=== PATIENT | male | born 1950 | race Caucasian/White ===

== ENCOUNTER → 2016-09-07 | Outpatient (CLI) | payer BC ==
[2016-09-07 10:26] LABS: BASOPHILS # (AUTO) 0.07 10*3/UL; BASOPHILS % (AUTO) 0.7 % (0-1); EOSINOPHILS # (AUTO) 0.75 10*3/UL; EOSINOPHILS % (AUTO) 7.4 % (0-8); HEMATOCRIT 41.5 % (42.0-52.0); HEMOGLOBIN 14.7 g/dL (14.0-18.0); LYMPHOCYTES # (AUTO) 3.78 10*3/uL; MEAN CORPUSCULAR HEMOGLOBIN 28.7 PG (27-31); MEAN CORPUSCULAR HGB CONC 35.4 g/dL (33-37); MEAN CORPUSCULAR VOLUME 80.9 FL (80-90); MONOCYTES # (AUTO) 0.67 10*3/UL (0.3-0.8); MONOCYTES % (AUTO) 6.6 % (5-15); NEUTROPHILS # (AUTO) 4.85 10*3/UL; NEUTROPHILS % (AUTO) 47.4 % (50-80); RED BLOOD COUNT 5.13 10^6/uL (4.70-6.10)
[2016-09-07 10:31] LABS: BLOOD UREA NITROGEN 19 mg/dL (7-22); BUN/CREATININE RATIO 21.11 (6-20); CALCIUM 9.7 mg/dL (8.7-10.7); CHOL/HDL RATIO 5.48 RATIO (0-4.0); EST GLOMERULAR FILTRATION > 60 (>60 ml/min/1.73m(2)); HDL CHOLESTEROL 29 mg/dL (40-150); SERUM ALBUMIN 4.6 g/dL (3.5-4.8); SERUM CHOLESTEROL 159 mg/dL (120-200)
[2016-09-07 10:48] LABS: PLATELET MORPHOLOGY COMMENT NORMAL MORPHOLOGY (NORM); RBC MORPHOLOGY COMMENT NORMAL MORPHOLOGY (NORM); WBC MORPHOLOGY COMMENT NORMAL MORPHOLOGY (NORM)
== END ==
LOC: MOB LAB 08:24
DX: G35 Multiple sclerosis (principal); E79.0 Hyperuricemia without signs of inflammatory arthritis and tophaceous disease; F32.9 Major depressive disorder, single episode, unspecified; E55.9 Vitamin D deficiency, unspecified; K21.9 Gastro-esophageal reflux disease without esophagitis; N40.0 Benign prostatic hyperplasia without lower urinary tract symptoms; Z13.6 Encounter for screening for cardiovascular disorders; Z12.5 Encounter for screening for malignant neoplasm of prostate
CPT/HCPCS: 36415; 80053; 80061; 82306; 84443; 84550; 85025; G0103

== ENCOUNTER 2017-01-27 11:41 | Emergency (ER) | payer BC ==
[2017-01-27] MEDS ORDERED: ONDANSETRON 4 MG/2 ML VIAL IVP ONE (11:48)
[2017-01-27] MEDS ORDERED: Sodium Chloride 0.9% 1,000 ML PRIMARY IV ONE (11:48)
--- NOTE | 2017-01-27 11:53 | PDOC ---
Gen Adult / Medical Screen HPI - General Chief Complaint: General Medical Stated Complaint: URINARY RETENTION Date Seen by Provider: 01/27/17 Time Seen by Provider: 11:49 Source: POSITIVE: Patient Exam Limitations: POSITIVE: No limitations Nurse's Notes Reviewed & Considered: Yes - Indicators Temperature Between 95 and 101 Degrees: Yes Respirations Between 12 and 20: Yes Blood Pressure Between 100-165 (sys) and 60-100 (harris): Yes Pulse Range Between 60-105 (100 for age > 60 years): Yes Severe Pain (Greater than 5/10 Reported): No Chest or Abdominal Pain: No Inability to Walk: No Pt Reports Active High Risk Cond. (TB/Hepatitis/HIV/Chemo): No Abnormal Mental Status: No - History of Present Illness Initial Comments: This is a very pleasant 66-year-old patient complaining of urinary retention. Patient has 24 hours of being unable to void urine. He has had history of similar episodes in the past but this has lasted longer than any other. He does have multiple sclerosis and has recently changed his diet to a vegan diet in order to reduce his uric acid load. Patient denies any headache, no chest pain, he does have some vague sense of shortness of breath. He denies any nausea vomiting or diarrhea, no fever or sweats but does have chills. He does have abdominal pain in the suprapubic region from urinary retention. No rashes , no myalgias or arthralgias. Body Location Affected: REPORTS: Abdomen Timing: REPORTS: Gradual Duration: >24 hours Similar Symptoms Previously: Yes Recent Care Received: REPORTS: Denies Any Prior Injuries Related to Current Complaint?: No - Patient Home Medications Home Medications: Home Medications Sertraline HCl 1 tab PO DAILY #30 tab 05/12/15 Dalfampridine [Ampyra] 1 tab PO Q12H #180 tab 07/30/15 Cholecalciferol (Vitamin D3) [Vitamin D3] 1 tab PO QD #30 tab 08/05/15 Aspirin [Aspirin Ec] 1 tab PO QD #30 tab 08/26/16 Multivits-Minerals/FA/Lycopene [Men's Daily Formula Capsule] 1 cap PO QD #30 cap 08/26/16 Tamsulosin HCl 1 cap PO QD #30 cap 10/18/16 - Patient Allergies Allergies/Adverse Reactions: Allergies Allergy/AdvReac Type Severity Reaction Status Date / Time No Known Drug Allergies Allergy Unverified 01/27/17 11:02 ROS - Limitations ROS Limitations: No Limitations Constitution: REPORTS: Chills Cardiovascular: REPORTS: Denies Cardiac Symptoms Respiratory: REPORTS: Shortness Of Breath Neurological: REPORTS: Other (Multiple sclerosis) Gastrointestinal: REPORTS: Denies GI Symptoms Endocrine: REPORTS: Denies Symptoms Musculoskeletal: REPORTS: Denies MS Symptoms Genitourinary: REPORTS: Denies Symptoms Eyes: REPORTS: Denies Symptoms ENT: REPORTS: Denies Symptoms Skin: REPORTS: Denies Skin Symptoms Lympathic: REPORTS: Denies Lympathic Symptoms Immunologic: POSITIVE: Denies Symptoms Psychiatric: POSITIVE: Denies Psych Symptoms Gen Adult/Medical Screen Exam - General Appearance General Appearance: POSITIVE: Alert, Cooperative, No Evidence of Trauma, Mild Distress - HEENT HEENT: POSITIVE: Head Inspection Nml, Eyes Inspection Nml, Ears Inspection Nml, Nose Inspection Nml, Oral/Dental Inspect. Nml, Pharynx Inspect. Nml, PERRL, EOMI - Pupils Pupil Size: 5 mm: Bilateral - Neck Neck: POSITIVE: Normal Inspection, Thyroid Normal - Respiratory Respiratory: POSITIVE: No Respiratory Distress, Breath Sounds Normal, Chest Non- Tender - Cardiovascular Cardiovascular: POSITIVE: Regular Rate & Rhythm, No Murmur, No Gallop, PMI Normal Peripheral Pulses: Radial (R): 4+ - Abdomen Abdomen: Soft: (All Quadrants), Normal Bowel Sounds: (All Quadrants), No Splenomegaly: (All Quadrants), No Hepatomegaly: (All Quadrants), No Guarding: ( All Quadrants), No Rebound: (All Quadrants), No Palpable Pulse: (All Quadrants) , No Palpabale Mass: (All Quadrants), No Rigidity: (All Quadrants), Tenderness Noted: (RLQ), (LLQ), Distention: (RLQ), (LLQ) - Back Back: POSITIVE: Normal Inspection - Neurological / Psychological Mental Status: POSITIVE: Mood Normal, Affect Normal Orientation: POSITIVE: Oriented x 3 - Skin Skin: POSITIVE: Normal Color, Warm, Dry, No Rash - Extremities Extremity: Non-Tender: (All Extremities), Normal ROM: (All Extremities), Normal Inspection: (All Extremities), Pelvis Stable: (All Extremities) Gen Adlt/Medical Scrn Progress - Results Reviewed by me Xrays/CTs/US Reviewed by me: Yes Discussed with Radiologist: Yes Lab Results Reviewed: Yes Lab Results:: Laboratory Results 01/27/17 01/27/17 Range/Units 12:15 12:28 WBC 12.58 H (4.8-10.8) 10^3/uL RBC 5.39 (4.70-6.10) 10^6/uL Hgb 15.6 (14.0-18.0) g/dL Hct 43.6 (42.0-52.0) % MCV 80.9 (80-90) FL MCH 28.9 (27-31) PG MCHC 35.8 (33-37) g/dL RDW Std Deviation 44.2 (39-50) fL RDW Coeff of Lam 15.2 H (11.5-14.5) % Plt Count 147 (140-350) 10*3/uL MPV 8.9 (7.4-12.2) FL Immature Gran % (Auto) 1.1 (0-5) % Neut % (Auto) 73.8 (50-80) % Lymph % (Auto) 10.1 (10-50) % Beckham % (Auto) 12.2 (5-15) % Eos % (Auto) 1.1 (0-8) % Baso % (Auto) 1.7 H (0-1) % Immature Gran # (Auto) 0.14 10*3/UL Neut # (Auto) 9.29 10*3/UL Lymph # (Auto) 1.27 10*3/uL Beckham # (Auto) 1.53 H (0.3-0.8) 10*3/UL Eos # (Auto) 0.14 10*3/UL Baso # (Auto) 0.21 10*3/UL WBC Morphology Comment Normal morphology (NORM) Plt Morphology Comment Normal morphology (NORM) RBC Morph Comment Normal morphology (NORM) PT 12.7 H (9.7-11.4) secs INR 1.20 (0.00-5.90) N/A D-Dimer 0.78 H (0.00-0.59) mg/L Sodium 142 (135-145) meq/L Potassium 3.8 (3.8-5.2) meq/L Chloride 101 (98-112) meq/L Carbon Dioxide 23 (23-33) meq/L Anion Gap 18 (5-20) BUN 18 (7-22) mg/dL Creatinine 1.1 (0.70-1.50) mg/dL Estimated GFR > 60 (>60 ml/min/1.73m(2)) BUN/Creatinine Ratio 16.36 (6-20) Glucose 110 (78-110) mg/dL Calculated Osmolality 296.0 H (267-292) mOsm/kg Lactic Acid 4.1 H (0.70-2.10) MMOL/L Calcium 10.1 (8.7-10.7) mg/dL Magnesium 1.8 (1.6-2.4) mg/dL Total Bilirubin 1.3 H (0.3-1.2) mg/dL AST 46 (21-57) IU/L ALT 30 (21-72) IU/L Alkaline Phosphatase 110 (38-126) IU/L Total Protein 7.3 (6.1-8.0) g/dL Albumin 4.9 H (3.5-4.8) g/dL Globulin 2.4 L (2.50-4.10) g/dL Albumin/Globulin Ratio 2.00 (1.3-2.0) mg/g Ur Collection Type Cath specimen Urine Color Yellow Urine Clarity Clear (CLEAR) Urine pH 5.5 (5.0-8.5) Ur Specific [place] 1.015 (1.005-1.030) Urine Protein Negative (NEG) mg/dl Urine Glucose (UA) Negative (NEG) mg/dL Urine Ketones Trace (NEG) Urine Occult Blood Moderate H (NEG) Urine Nitrate Negative (NEG) Urine Bilirubin Negative (NEG) Urine Urobilinogen 0.2 (0.2) EU/dL Ur Leukocyte Esterase Negative (NEG) Urine RBC 15-20 (NONE) /hpf Urine WBC None (NONE) Ur Squamous Epith Cells None (NONE) Ur Renal Epithelial Cell None (NONE) Urine Crystals None Urine Bacteria None (NONE) Urine Casts None (NONE) Urine Mucus Few (NONE) Urine Trichomonas None (NONE) Urine Yeast None (NONE) Ur Culture Indicated? Culture not set - Patient's Progress Pain Medication Addressed: POSITIVE: Not Applicable School/Work Release Addressed: POSITIVE: Yes Status: POSITIVE: Improved MDM / ED Course: Patient was evaluated, an IV started, blood drawn and sent to the lab for studies, radiographic examinations were obtained. Findings: CBC shows white count 12.5. Comprehensive metabolic panel is unremarkable. INR is normal. D-dimer is elevated 0.78. Chest x-ray is a normal chest radiograph. CT scan of chest shows no acute PE and no acute intrathoracic abnormalities. Urinalysis shows blood present but no bacteria. Assessment: Urinary retention. Plan discharge home with Bey catheter indwelling and leg bag. Follow-up with urology in [facility]. - Consult Counseled: POSITIVE: Patient, RE: Lab Results, RE: Radiology Results, RE: DX, RE : Need for F/U Patient Care Time - Estimated PCT Patient Care Time (In Minutes): 45 Vital Signs - Recent Vital Signs Vital Signs: Vital Signs (Last 8 hours) Temp Pulse Resp BP Pulse Ox 01/27/17 14:10 76 14 132/75 95 01/27/17 12:28 98.6 F 98 16 139/79 96 - VS Reviewed Vital Signs Reviewed: Yes Discharge Clinical Impression: Retention of urine Discharge Disposition: Discharged to Home Condition: Stable Patient Instructions Given at Discharge: Urinary Retention in Men (ED)
[2017-01-27 12:14] LABS: BILIRUBIN,URINE NEGATIVE (NEG); CLARITY,URINE CLEAR (CLEAR); COLOR,URINE YELLOW; GLUCOSE, URINE (UA) NEGATIVE (NEG); NITRATE,URINE NEGATIVE (NEG); OCCULT BLOOD,URINE MODERATE (NEG); PH,URINE 5.5 (5.0-8.5); PROTEIN,URINE NEGATIVE (NEG); UROBILINOGEN,URINE 0.2 EU/dL (0.2)
[2017-01-27 12:25] LABS: RBC,URINE 15-20 /hpf; URINE SAMPLE TYPE CATH SPECIMEN
[2017-01-27 12:29] LABS: BASOPHILS # (AUTO) 0.21 10*3/UL; BASOPHILS % (AUTO) 1.7 % (0-1); EOSINOPHILS # (AUTO) 0.14 10*3/UL; EOSINOPHILS % (AUTO) 1.1 % (0-8); HEMATOCRIT 43.6 % (42.0-52.0); HEMOGLOBIN 15.6 g/dL (14.0-18.0); LYMPHOCYTES # (AUTO) 1.27 10*3/uL; MEAN CORPUSCULAR HEMOGLOBIN 28.9 PG (27-31); MEAN CORPUSCULAR HGB CONC 35.8 g/dL (33-37); MEAN CORPUSCULAR VOLUME 80.9 FL (80-90); MEAN PLATELET VOLUME 8.9 FL (7.4-12.2); MONOCYTES # (AUTO) 1.53 10*3/UL (0.3-0.8); MONOCYTES % (AUTO) 12.2 % (5-15); NEUTROPHILS # (AUTO) 9.29 10*3/UL; NEUTROPHILS % (AUTO) 73.8 % (50-80); PLATELET MORPHOLOGY COMMENT NORMAL MORPHOLOGY (NORM); RBC MORPHOLOGY COMMENT NORMAL MORPHOLOGY (NORM); RED BLOOD COUNT 5.39 10^6/uL (4.70-6.10); WBC MORPHOLOGY COMMENT NORMAL MORPHOLOGY (NORM)
[2017-01-27 12:37] LABS: BLOOD UREA NITROGEN 18 mg/dL (7-22); BUN/CREATININE RATIO 16.36 (6-20); CALCIUM 10.1 mg/dL (8.7-10.7); EST GLOMERULAR FILTRATION > 60 (>60 ml/min/1.73m(2)); MAGNESIUM 1.8 mg/dL (1.6-2.4); SERUM ALBUMIN 4.9 g/dL (3.5-4.8)
[2017-01-27 12:42] VITALS: TEMP 98.6
--- NOTE | 2017-01-27 12:45 | DI ---
PA /LATERAL CHEST X-RAY, 01/27/2017 11:48 AM : Clinical History: Shortness of breath Previous Exam: None at this facility. There is no acute soft tissue or bony abnormality. Heart size is normal. Lungs are clear. Mediastinal structures are normal. There are no pulmonary nodules. IMPRESSION: Normal chest x-ray.
--- NOTE | 2017-01-27 14:35 | DI ---
CT CTA CHEST NONCORONARY W/WO,01/27/2017 1:06 PM: Clinical History: Shortness of breath with elevated d-dimer. Previous Exam: Plain film performed January 27, 2017 Findings: Multiple helically acquired CT images are obtained through the chest following a CT chest angiogram p rotocol, and demonstrate some thickening of the esophagus throughout its course in the chest. There i s no evidence of hiatal hernia. The upper abdomen is unremarkable. The lungs are clear. The pulmonary arteries are normal without filling defect or truncation. The thyroid is also unremarkable. Mild diffuse degenerative changes of the spine are noted as well. Impression: 1. No evidence of pulmonary embolism. 2. No acute intrathoracic pathology.
[2017-01-27 15:18] VITALS: RESP 14
== END 2017-01-27 15:10 | disposition home or self-care (01) ==
LOC: ER 11:41
DX: R33.9 Retention of urine, unspecified (principal); G35 Multiple sclerosis; R06.02 Shortness of breath
CPT/HCPCS: 71020; 71275; 80053; 81001; 81003; 83605; 83735; 85025; 85379; 85610; 96374; 99283 ×2; J2405; J7030

== ENCOUNTER → 2017-02-04 | Outpatient (CLI) | payer BC ==
[2017-02-08 08:54] LABS: HEPATITIS B SURFACE AG Negative (Negative)
[2017-02-08 10:48] LABS: HEPATITIS B CORE AB, TOTAL Negative (Negative)
== END ==
LOC: LAB 15:34
PROVIDERS: ATTEND Psychiatry & Neurology Neurology
DX: Z11.59 Encounter for screening for other viral diseases (principal)
CPT/HCPCS: 36415; 86704; 86705; 86706; 87340

== ENCOUNTER 2017-02-05 16:15 | Emergency (ER) | payer BC ==
[2017-02-05 16:26] VITALS: RESP 18; TEMP 98
[2017-02-05] MEDS ORDERED: LIDOCAINE HCL 2 % 10 ML JELLY URO-JECT TOPICAL ONE ×2 (16:32→16:44)
[2017-02-05 16:54] LABS: BILIRUBIN,URINE NEGATIVE (NEG); CLARITY,URINE CLEAR (CLEAR); COLOR,URINE YELLOW; GLUCOSE, URINE (UA) NEGATIVE (NEG); NITRATE,URINE NEGATIVE (NEG); OCCULT BLOOD,URINE LARGE (NEG); PH,URINE 6.5 (5.0-8.5); PROTEIN,URINE TRACE mg/dl (NEG); UROBILINOGEN,URINE 0.2 EU/dL (0.2)
[2017-02-05 17:08] LABS: RBC,URINE 30-40 /hpf; SQUAMOUS EPITHELIAL CELL,UR RARE; URINE CRYSTALS FEW; URINE SAMPLE TYPE CLEAN CATCH URINE
--- NOTE | 2017-02-05 17:27 | PDOC ---
Male Genitourinary Problem HPI - General Chief Complaint: Genitourinary Complaint Stated Complaint: CAN'T URINATE Date Seen by Provider: 02/05/17 Time Seen by Provider: 16:20 Source: POSITIVE: Patient Exam Limitations: POSITIVE: No limitations Nurse's Notes Reviewed & Considered: Yes - History of Present Illness Initial Comments: The patient is a 66-year-old male who presents to the emergency department with urinary difficulties. He had urinary retention and had a Bey catheter placed on January 27. He subsequently followed up with the urologist in [place] Dr. Rizvi. The catheter was taken out and he was given instructions regarding self -catheterization. He has continued to have difficulty with urination and requiring self-catheterization at home. Initially this was going okay. Today when he tried to self catheterized all he got back was blood and he was unable to empty his bladder. He has some lower abdominal pain and pressure. He denies fevers or chills, nausea vomiting or any other associated complaints. - Patient Home Medications Home Medications: Home Medications Sertraline HCl 1 tab PO DAILY #30 tab 05/12/15 Dalfampridine [Ampyra] 1 tab PO Q12H #180 tab 07/30/15 Cholecalciferol (Vitamin D3) [Vitamin D3] 1 tab PO QD #30 tab 08/05/15 Aspirin [Aspirin Ec] 1 tab PO QD #30 tab 08/26/16 Multivits-Minerals/FA/Lycopene [Men's Daily Formula Capsule] 1 cap PO QD #30 cap 08/26/16 Tamsulosin HCl 1 cap PO QD #30 cap 10/18/16 - Patient Allergies Allergies/Adverse Reactions: Allergies Allergy/AdvReac Type Severity Reaction Status Date / Time No Known Drug Allergies Allergy NOT Verified 02/05/17 16:19 APPLICABLE Past Medical History - heen HEENT History: Denies History Cardiovascular History: Denies History Respiratory History: Denies History Gastrointestinal History: Other (please comment) Additional Gastrointestinal History: unable to make a b/m for past 24hrs Genitourinary History: Other (please comment) Additional Genitourinary History: pt has been unable to urine for 24 hours Endocrine History: Denies History Musculoskeletal History: Denies History Prosthesis or Implant: No Neurological History: Multiple Sclerosis Blood Disorders: Denies History Psychiatric History: Denies History History of Sexually Transmitted Diseases: No Cancer History: Denies History In Past Year Been Physically Harmed or Verbally Threatened: No History of MDRO: No History of Other Communicable Diseases: No Tobacco Use: Never Smoker Alcohol Use: None Substance Use Type: None Previous Surgical History: No Anesthesia Reactions: No Malignant Hyperthermia: No Significant Family History: Diabetes Past Medical History Reviewed: Reviewed - No Changes ROS - Limitations ROS Limitations: No Limitations Constitution: DENIES: Chills, Fever Cardiovascular: REPORTS: Denies Cardiac Symptoms Respiratory: REPORTS: Denies Resp Symptoms Neurological: REPORTS: Denies Neuro Symptoms Gastrointestinal: REPORTS: Abdominal Pain. DENIES: Nausea, Vomitting Genitourinary: REPORTS: Difficulty Urinating. DENIES: Flank Pain Male Genitourinary Exam - General Appearance General Appearance: POSITIVE: Alert, Cooperative, No Acute Distress - Abdomen Abdomen: Soft: (All Quadrants), Normal Bowel Sounds: (All Quadrants) Additional Details: Suprapubic tenderness with palpable bladder, bedside ultrasound confirms a distended urinary bladder - HEENT HEENT: POSITIVE: Head Inspection Nml - Respiratory Respiratory: POSITIVE: Breath Sounds Normal - Cardiovascular Cardiovascular: POSITIVE: Regular Rate and Rhythm, Heart Sounds Normal Peripheral Pulses: Dorsalis-pedis (R): 2+, Dorsalis-pedis (L): 2+ Male Genitourinary Progress - Results Reviewed by me Lab Results: Laboratory Results 02/05/17 Range/Units 16:30 Ur Collection Type Clean catch urine Urine Color Yellow Urine Clarity Clear (CLEAR) Urine pH 6.5 (5.0-8.5) Ur Specific [place] 1.020 (1.005-1.030) Urine Protein Trace (NEG) mg/dl Urine Glucose (UA) Negative (NEG) mg/dL Urine Ketones Negative (NEG) Urine Occult Blood Large H (NEG) Urine Nitrate Negative (NEG) Urine Bilirubin Negative (NEG) Urine Urobilinogen 0.2 (0.2) EU/dL Ur Leukocyte Esterase Negative (NEG) Urine RBC 30-40 (NONE) /hpf Urine WBC None (NONE) Ur Squamous Epith Cells Rare (NONE) Ur Renal Epithelial Cell None (NONE) Urine Crystals Few Urine Bacteria None (NONE) Urine Casts None (NONE) Urine Mucus Few (NONE) Urine Trichomonas None (NONE) Urine Yeast None (NONE) Ur Culture Indicated? Culture not set - Patient's Progress MDM / ED Course: A Bey catheter was placed in the emergency department and the bladder was drained of 700 mL of urine. The urinalysis does reveal blood although the urine is not grossly bloody and there is no clots. There did not appear to be any evidence of urinary tract infection at this time. The catheter will be left in place for now. He is advised to follow-up with Dr. Dee next week. He will return here to the emergency room if he develops any worsening or change in symptoms. - Consult Counseled: POSITIVE: Patient, RE: Lab Results, RE: DX, RE: Need for F/U Patient Care Time - Estimated PCT Patient Care Time (In Minutes): 15 Vital Signs - Recent Vital Signs Vital Signs: Vital Signs (Last 8 hours) Temp Pulse Pulse Resp BP Pulse Ox 02/05/17 16:21 98 F 113 H 18 114/84 92 02/05/17 16:18 98 F 113 H 18 114/84 97 - VS Reviewed Vital Signs Reviewed: Yes Discharge Clinical Impression: Urinary retention Discharge Disposition: Discharged to Home Patient Instructions Given at Discharge: Urinary Retention in Men (ED) Additional Instructions: Keep the Bey catheter in place. Return to the emergency room if increased pain, fever, any worsening or change in symptoms. Follow-up with urology, call on Tuesday to schedule a follow-up. Follow Up With: MERCY RUSSELL [Primary Care Provider] -
== END 2017-02-05 17:21 | disposition home or self-care (01) ==
LOC: ER 16:15
DX: R33.9 Retention of urine, unspecified (principal); G35 Multiple sclerosis
CPT/HCPCS: 81001; 81003; 99282